=== PATIENT | male | born 1960 | race Caucasian/White ===

== ENCOUNTER 2020-01-08 09:56 | Emergency (ER) | payer OTHER, SELFPAY ==
[2020-01-08 09:57] VITALS: BP 177/116; PULSE 89; RESP 20; TEMP 36.3; O2SAT 97; BMI 35.2
--- NOTE | 2020-01-08 10:07 | CT_ITS ---
STUDY: CT ABDOMEN AND PELVIS WITH CONTRAST REASON FOR EXAM: Male, 59 years old. RT FLANK PAIN, ABD PAIN X 1 WK, DIFFICULTY URINATING, HTN RADIATION DOSAGE (If Supplied By Facility): CTDIvol = ( 14.43 ) mGy, DLP = ( 1199.65 ) mGycm TECHNIQUE: Transaxial images were obtained from the dome of the diaphragm to the symphysis pubis without oral contrast. IV 100mL Isovue-300 was administered. Sagittal and coronal images were reconstructed. Individualized dose optimization techniques were used for this CT. COMPARISON: None. FINDINGS: There is right lower lobe linear atelectasis. The visualized portions of the heart are within normal limits. There is decreased attenuation of the liver consistent with steatosis. There are hepatic cysts measuring up to 9.3 cm in the right hepatic lobe. Normal gallbladder and extrahepatic biliary system. Normal spleen. Normal pancreas. Normal bilateral adrenal glands. There is moderate right hydroureteronephrosis and moderate to marked right perinephric stranding secondary to a 3 mm stone in the right distal ureter, near the UVJ. There is a right renal lower pole cyst. Normal left kidney. Normal visualized stomach. Normal small intestine. There is colonic diverticulosis without evidence of acute diverticulitis. The appendix is visualized and appears normal. Normal abdominal aorta. Normal inferior vena cava. Normal retroperitoneum. Normal urinary bladder. The prostate gland is enlarged. Normal abdominal wall. There are diffuse degenerative changes of the visualized lumbar spine. CT/Abdomen/Pelvis W IV Cont ONLY IMPRESSION: Moderate right hydroureteronephrosis and moderate to marked right perinephric stranding secondary to a 3 mm stone in the right distal ureter, near the UVJ. Prostatomegaly. Hepatic steatosis. Electronically Signed: Peggy Renner, at 12:12 EDT Tel , Service support ,
--- NOTE | 2020-01-08 10:09 | ED.DCSUM_ITS ---
History of Present Illness Chief Complaint: Abd Pain Narrative: 59-year-old male presents with right flank pain. States that last weekend he began having pain in his right flank and back. States it was aching. States he was having difficulty urinating at that time. States that he took off work on Wednesday which is now 1 week ago. States he drink a lot of water and rested and got better. States that beginning 2 days ago he began having the pain again and had 2 episodes of vomiting yesterday. Is urinating without difficulty. Denies any fever but does admit to chills. Denies any chest pain or shortness of breath. States that he did have a few alcoholic beverages on Wednesday. Denies any illicit drug use. Past Medical History - Allergies and Home Meds Allergies/Adverse Reactions: Allergies No Known Allergies Allergy (Verified 03/28/16 19:07) Primary Care Physician: Nile Cabral MD [Primary Care Provider] - Prior records reviewed: Yes Past Medical History: - - Hypertension Surgical History: - - Eye surgery as a child Lives: Spouse/ Significant Other Smoking Status: Never smoker Alcohol: Occasional Drugs: None Review of Systems General: Reports: Chills. Denies: Fever, Sweats Eyes: Denies: Visual changes - bilaterally, Diplopia ENT: Denies: Rhinorrhea, Sore throat Cardiovascular: Denies: Chest pain, Palpitations Respiratory: Denies: Dyspnea, Cough, Dyspnea on exertion Gastrointestinal: Reports: Abdominal pain, Nausea, Vomiting. Denies: Diarrhea, Melena, Hematochezia Genitourinary: Denies: Dysuria, Hematuria, Frequency Musculoskeletal: Denies: Back pain, Extremity Pain Skin: Denies: Rash, Wounds Neurological: Denies: Headache, Weakness, Numbness Physical Exam Vital Signs/Narrative: Vital Signs Temp Pulse Resp BP Pulse Ox 01/08/20 09:57 97.4 F L 89 20 H 177/116 H 97 Inital Vital Signs reviewed: Yes General: Well nourished, Well developed, No Acute Distress Head: Normocephalic, Atraumatic Eyes: Perrl, EOMI ENT: Moist mucous membranes, No rhinorrhea Neck: Supple, Nontender Cardiovascular: Regular rate, Regular rhythm, No murmurs Respiratory: No distress, CTA bilaterally, Chest nontender Abdomen: Soft, Nontender, Nondistended, Normal bowel sounds Back: Nontender, Normal Inspection Extremities: Nontender, No edema Skin: Normal color, No rash Neurological: Alert, Oriented x3, Cranial nerves II-XII grossly intact, Normal Strength, Normal Sensation Psychological: Normal affect, Normal Mood Diagnostic/Tx/Re-eval Clinical Impression(s) from Imaging Studies Abdomen/Pelvis CT 01/08/20 10:07 IMPRESSION: Moderate right hydroureteronephrosis and moderate to marked right perinephric stranding secondary to a 3 mm stone in the right distal ureter, near the UVJ. Prostatomegaly. Hepatic steatosis. Electronically Signed: Peggy Renner, at 12:12 EDT Tel , Service support , Laboratory Data 01/08/20 01/08/20 01/08/20 10:13 10:13 11:15 WBC 15.0 H RBC 5.07 Hgb 15.2 Hct 45.8 MCV 90.3 MCH 30.0 MCHC 33.2 RDW Std Deviation 38.6 RDW Coeff of Ginny 11.9 Plt Count 362 MPV 9.0 Immature Gran % (Auto) 0.300 Neut % (Auto) 82.4 H Lymph % (Auto) 7.5 L Davidson % (Auto) 9.3 Eos % (Auto) 0.1 Baso % (Auto) 0.4 Absolute Neuts (auto) 12.4 H Absolute Lymphs (auto) 1.13 Nucleated RBC % 0 Sodium 135 L Potassium 3.5 Chloride 105 Carbon Dioxide 24.0 Anion Gap 6 BUN 16 Creatinine 1.32 H Estim Creat Clear Calc 62.22 Est GFR (MDRD) Af Amer 71 Est GFR (MDRD) Non-Af 59 L BUN/Creatinine Ratio 12.1 Glucose 136 H Calcium 8.6 Total Bilirubin 2.90 H AST 38 H ALT 52 Alkaline Phosphatase 46 Total Protein 7.7 Albumin 3.7 Globulin 4.0 Albumin/Globulin Ratio 0.9 Lipase 42 L Urine Color Yellow Urine Clarity Clear Urine pH 6.0 Ur Specific [place] 1.010 Urine Protein 15 H Urine Glucose (UA) Normal Urine Ketones Negative Urine Occult Blood 50 H Urine Nitrite Negative Urine Bilirubin Negative Urine Urobilinogen Normal Ur Leukocyte Esterase Negative Urine RBC 0-5 SEEN Urine WBC 0 SEEN Ur Squamous Epith Cells 0-5 SEEN Urine Bacteria 0 SEEN Urine Mucus 0 SEEN - Medical Decision Making Appears well nontoxic. Urine shows evidence of microscopic hematuria without infection. Leukocytosis of 15,000. Slightly elevated creatinine of 1.3 with no baseline for comparison. Patient was given fluid bolus, pain control, Zofran. This did control the patient's symptoms. CT shows evidence of 3 mm UVJ stone with hydronephrosis and right-sided nephric stranding. Patient also has incidental finding of large hemangioma of the liver versus cyst. Nonspecific elevation in bilirubin possibly secondary to these cystic structures. Gallbladder well observed without evidence of distention or stone. Spoke with urologist on-call Dr. Pedraza who is agreeable with outpatient management. Patie nt will be given Percocet, Zofran, Keflex. Was given a dose of Rocephin before discharge. Asked to return for new or worsening symptoms. Patient agreeable and discharged home in stable condition. ED Disposition - Plan for ED Patient: Disposition: Home or Assisted Living Diagnosis: Ureterolithiasis, Leukocytosis, Liver lesion, Hyperbilirubinemia Instructions: ED Renal Stone w Colic, Total Bilirubin Blood Prescriptions: Tamsulosin HCl [Flomax] 0.4 mg PO DAILY #7 cap Prescription Printed Cephalexin [Keflex] 500 mg PO Q6 #28 cap Prescription Printed Oxycodone HCl/Acetaminophen [Percocet 5/325] 1 tab PO Q6H PRN PRN 3 Days #12 tab PRN Reason: Pain Prescription Printed Ondansetron [Zofran Odt] 4 mg PO Q8H PRN PRN #10 tab PRN Reason: Nausea Prescription Printed Referrals: Nile Cabral MD [Primary Care Provider] - Roberto Pedraza MD [STAFF PHYSICIAN] - As soon as possible Additional Instructions: Please make appointment with urologist within the next 3 to 5 days. You are als o found to have lesions on your liver which are likely benign either cysts or hemangiomas. Bilirubin was elevated however gallbladder appeared normal. Please follow-up with your primary care physician about this issue.
[2020-01-08 10:12] VITALS: BP 177/116; PULSE 89; RESP 20; TEMP 36.3; O2SAT 97
[2020-01-08] MEDS: 0.9% Normal Saline 1,000 ML 1000 ML IV (10:16)
[2020-01-08] MEDS: Ondansetron 4 MG/2 ML Vial IV (10:17)
[2020-01-08] MEDS: Ketorolac 30 MG/ML Syringe IV (10:17)
[2020-01-08 10:31] LABS: Absolute Lymphocyte Count 1.13 X10^3/uL (0.83-4.51); Absolute Neutrophil Count 12.4 X10^3/uL (2.0-7.7); Basophil# 0.06 X10^3/uL; Basophil% 0.4 % (0-1); Eosinophil# 0.01 X10^3/uL; Eosinophils% 0.1 % (0-5); Hematocrit 45.8 % (40-54); Hemoglobin 15.2 g/dL (13.0-16.5); Lymphocyte # 1.13 X10^3/ul (4.0); Lymphocyte % 7.5 % (19-41); Mean Corp Hgb Conc 33.2 g/dL (32-36); Mean Corpuscular Volume 90.3 fL (80-94); Monocyte# 1.39 X10^3/uL; Monocyte% 9.3 % (0-10); NRBC Flagged by Analyzer 0 % (0-5); Neutrophil # 12.37 X10^3/uL (2.7-7.7); Neutrophil % 82.4 % (47-70); Platelet Count 362 K/mm3 (150-450); RBC Distribution Width CV 11.9 % (11.6-14.6); RBC Distribution Width SD 38.6 fl (35.1-43.9); Red Blood Count 5.07 M/mm3 (4.6-6.2)
[2020-01-08 10:41] LABS: ALB/GLOB Ratio 0.9 RATIO (0.9-2.4); AST(SGOT) 38 U/L (15-37); Alanine Aminotransfer ALT/SGPT 52 U/L (16-61); Albumin, Serum 3.7 g/dL (3.2-5.0); Alkaline Phosphatase 46 U/L (45-117); Anion Gap 6 (5-15); BUN 16 mg/dL (7-18); BUN/Creat Ratio 12.1 RATIO (10-20); Calcium,Total 8.6 mg/dL (8.5-10.1); Chloride 105 mmol/L (98-107); Creatinine, Serum 1.32 mg/dL (0.70-1.30); EST Glomerular Filtration Rate 59 mL/min (>60); Est Glom Filt Rate - Afr Amer 71 mL/min (>60); Estimated Creatinine Clearance 62.22 ml/min; Glucose 136 mg/dL (74-106); Lipase 42 U/L (73-393); Potassium 3.5 mmol/L (3.5-5.1); Protein, Total 7.7 g/dL (6.4-8.2); Sodium Level 135 mmol/L (136-145)
[2020-01-08 11:22] LABS: Bacteria 0 SEEN /hpf (None Seen); Mucous, Urine 0 SEEN /hpf (<or=2+); White Blood Cells 0 SEEN /hpf (0-5)
[2020-01-08 11:24] LABS: Color, Urine Yellow (Yellow); Glucose, Dipstick Normal (Normal); Ketone-Dipstick Negative (Negative); Leukocyte Esterase-Dipstick Negative /ul (Negative); Nitrite-Dipstick Negative (Negative); Occult Blood-Urine 50 /ul (Negative); Protein-Dipstick 15 mg/dl (Negative); Urine Bilirubin Dipstick Negative (Negative); Urine Clarity Clear (Clear); Urine Urobilinogen Normal (Normal)
[2020-01-08 11:30] LABS: Red Blood Cells-Urine 0-5 SEEN /hpf (0-5); Squamous Epithelial Cells - UA 0-5 SEEN /hpf (0-5)
[2020-01-08] MEDS: Ceftriaxone 1 GM/50 ML BAG IV (13:43)
[2020-01-08 15:12] VITALS: RESP 18
== END 2020-01-08 15:20 | disposition home or self-care (01) ==
PROVIDERS: Emergency Provider Emergency Medicine; PCP Family Medicine
DX: N13.2 Hydronephrosis with renal and ureteral calculous obstruction (principal); D72.829 Elevated white blood cell count, unspecified; K76.9 Liver disease, unspecified; E80.6 Other disorders of bilirubin metabolism; I10 Essential (primary) hypertension; Z79.82 Long term (current) use of aspirin
CPT/HCPCS: 74177; 80053; 81001; 83690; 85025; 96361; 96365; 96366; 96375; 99283; J7030; Q9967; A4216; J2405

== ENCOUNTER → 2021-04-09 07:07 | Outpatient (CLI) | payer SELFPAY ==
[2021-04-09 10:12] LABS: Absolute Lymphocyte Count 1.99 X10^3/uL (0.83-4.51); Absolute Neutrophil Count 3.2 X10^3/uL (2.0-7.7); Basophil# 0.14 X10^3/uL; Basophil% 2.3 % (0-1); Eosinophil# 0.27 X10^3/uL; Eosinophils% 4.4 % (0-5); Hematocrit 45.3 % (40-54); Lymphocyte # 1.99 X10^3/ul (0.83-4.51); Lymphocyte % 32.2 % (19-41); Mean Corp Hgb Conc 33.1 g/dL (32-36); Mean Corpuscular Hgb 29.9 pg (27.0-32.0); Mean Corpuscular Volume 90.4 fL (80-94); Mean Platelet Vol. 9.7 fl (6.2-12.0); Monocyte# 0.59 X10^3/uL; Monocyte% 9.5 % (0-10); NRBC Flagged by Analyzer 0 % (0-5); Neutrophil # 3.18 X10^3/uL (2.7-7.7); Neutrophil % 51.4 % (47-70); Platelet Count 362 K/mm3 (150-450); RBC Distribution Width SD 39.7 fl (35.1-43.9); Red Blood Count 5.01 M/mm3 (4.6-6.2); White Blood Count 6.2 K/mm3 (4.4-11.0)
[2021-04-09 10:32] LABS: ALB/GLOB Ratio 0.9 RATIO (0.9-2.4); AST(SGOT) 15 U/L (15-37); Alanine Aminotransfer ALT/SGPT 30 U/L (16-61); Albumin, Serum 3.6 g/dL (3.2-5.0); Alkaline Phosphatase 42 U/L (45-117); Anion Gap 6 (5-15); BUN 16 mg/dL (7-18); BUN/Creat Ratio 18.8 RATIO (10-20); Calcium,Total 8.7 mg/dL (8.5-10.1); Chloride 107 mmol/L (98-107); Cholesterol 173 mg/dL (200); Creatinine, Serum 0.85 mg/dL (0.70-1.30); EST Glomerular Filtration Rate 97 mL/min (>60); Est Glom Filt Rate - Afr Amer 118 mL/min (>60); Globulin 3.8 g/dL (2.2-4.2); Glucose 113 mg/dL (74-106); High Density Lipoprotein 40 mg/dL; PSA,Total - Annual Screen 0.83 ng/mL (0.00-4.00); Potassium 3.5 mmol/L (3.5-5.1); Protein, Total 7.4 g/dL (6.4-8.2); Sodium Level 139 mmol/L (136-145); Triglycerides 114 mg/dL; Very Low Density Lipoprotein 23 mg/dL (5-40)
== END ==
PROVIDERS: PCP Family Medicine; Referring Provider Family Medicine; Visit Provider Family Medicine
DX: Z00.00 Encounter for general adult medical examination without abnormal findings (principal); I10 Essential (primary) hypertension; Z12.5 Encounter for screening for malignant neoplasm of prostate
CPT/HCPCS: 36415; 80053; 80061; 84153; 85025; G0103

== ENCOUNTER 2023-01-23 20:02 | Emergency (ER) | payer SELFPAY ==
[2023-01-23 20:04] VITALS: BP 99/79; PULSE 90; RESP 18; TEMP 36.8; O2SAT 97; BMI 32.8
--- NOTE | 2023-01-23 20:55 | CT_ITS ---
INDICATION: Trauma EXAMINATION/TECHNIQUE: X-RAY - CT Maxillofacial W/O Contrast Injection COMPARISON: Head CT 03/28/2016. Findings: Noncontrast serial CT axial images of the facial bones with suboptimal MIP coronal and sagittal reformatted series. OSSEOUS STRUCTURES: Stable angulated left nasal bone deformity from 2016. No acute facial fracture. No TMJ subluxation. Pansinus mucosal thickening with left maxillary sinus opacification and associated surrounding chronic mucoperiosteal thickening. Bilateral multilevel mid cervical spine moderate to severe neuroforaminal narrowing. ORBITS: No obvious acute globe abnormality. No infiltration the orbital fat. REMAINING SOFT TISSUES: Right periorbital hematoma. CT/Sinus/Facial Bone IMPRESSION: Right periorbital hematoma without facial fracture appreciated. Pansinus disease. Neuroforaminal narrowing. Electronically Signed: Woody Elliott MD at 22:17 EDT ,
[2023-01-23 21:08] LABS: Absolute Neutrophil Count 3.4 X10^3/uL (2.0-7.7); Basophil# 0.16 X10^3/uL; Eosinophil# 0.28 X10^3/uL; Eosinophils% 3.5 % (0-5); Hematocrit 42.8 % (40-54); Hemoglobin 14.8 g/dL (13.0-16.5); Lymphocyte % 40.9 % (19-41); Mean Corp Hgb Conc 34.6 g/dL (32-36); Mean Corpuscular Hgb 31.6 pg (27.0-32.0); Mean Corpuscular Volume 91.5 fL (80-94); Mean Platelet Vol. 9.2 fl (6.2-12.0); Monocyte# 0.91 X10^3/uL; Monocyte% 11.3 % (0-10); NRBC Flagged by Analyzer 0 % (0-5); Neutrophil # 3.38 X10^3/uL (2.7-7.7); Neutrophil % 41.9 % (47-70); Platelet Count 372 K/mm3 (150-450); RBC Distribution Width CV 12.2 % (11.6-14.6); Red Blood Count 4.68 M/mm3 (4.6-6.2); White Blood Count 8.1 K/mm3 (4.4-11.0)
[2023-01-23] MEDS: Diphth,Pertuss(Acell),Tet Vac 0.5 ML Vial IM (21:18)
[2023-01-23 21:22] LABS: Anion Gap 16 (5-15); BUN 11 mg/dL (7-18); BUN/Creat Ratio 11.9 RATIO (10-20); Calcium,Total 8.3 mg/dL (8.5-10.1); Chloride 99 mmol/L (98-107); Creatinine, Serum 0.93 mg/dL (0.70-1.30); EST Glomerular Filtration Rate 88 mL/min (>60); Est Glom Filt Rate - Afr Amer 106 mL/min (>60); Estimated Creatinine Clearance 85.04 ml/min; Glucose 82 mg/dL (74-106); Potassium 3.3 mmol/L (3.5-5.1); Sodium Level 133 mmol/L (136-145)
--- NOTE | 2023-01-23 21:52 | ED.VIS.FALL ---
HPI HPI - Fall History of Present Illness Chief Complaint: Fall Informant: patient Occured/Mechanism Occurred: Today Mechanism/Context: Yes trip Pain/Injury Pain Location: face and lower extremity (Right knee) Quality of Pain: Dull Worsened by: Nothing Relieved by: Nothing Associated Symptoms Associated Symptoms: Positive for Loss of consciousness; Negative for Parasthesias, Weakness, Loss of function, Inability to ambulate or Amnesia Length of loss of consciousness: Few seconds Narrative Narrative: Patient presents after a fall that occurred tonight. Patient states he had been drinking several beers tonight. Patient states he tripped and fell forward. Patient states he landed on his face. Patient admits to a brief loss of consciousness. Patient denies any paresthesias or weakness. Patient states his tetanus was approximately 5 years ago. Patient describes his pain as dull. Patient states his pain is over the right periorbital area and right knee area. Patient admits to a mild headache. Patient denies any visual changes. Tetanus Immunization: <5 years [facility] Medical History HTN (hypertension) Home Medications albuterol sulfate 90 mcg/actuation aerosol inhaler 1 puff IH Q4H PRN PRN Sob &/Or Wheezing 01/08/20 [History Last Taken Unknown] amlodipine 5 mg tablet 5 mg PO DAILY 01/08/20 [History Last Taken 01/08/20] aspirin 81 mg tablet,delayed release 81 mg PO DAILY 01/08/20 [History Last Taken 01/08/20] atenolol 50 mg tablet 50 mg PO DAILY 01/08/20 [History Last Taken 01/08/20] cephalexin 500 mg capsule 500 mg PO Q6 #28 caps 01/08/20 [Rx Last Taken Unknown] citalopram 40 mg tablet 40 mg PO DAILY 01/08/20 [History Last Taken 01/08/20] hydrochlorothiazide 25 mg tablet 25 mg PO DAILY 01/08/20 [History Last Taken 01/08/20] losartan 100 mg tablet 100 mg PO DAILY 01/08/20 [History Last Taken 01/08/20] ondansetron 4 mg disintegrating tablet 4 mg PO Q8H PRN PRN Nausea #10 tabs 01/08/20 [Rx Last Taken Unknown] tamsulosin 0.4 mg capsule 0.4 mg PO DAILY #7 caps 01/08/20 [Rx Last Taken Unknown] Allergy/AdvReac Type Severity Reaction Status Date / Time No Known Allergies Allergy Verified 01/23/23 20:06 no surgical history Social History Smoking Status: Never smoker ROS ROS ED Constitutional Constitutional ED: Denies chills or fever(s) Eyes Eyes: Denies blurry vision or change in vision ENT ENT ED: Denies rhinorrhea or sore throat Cardiovascular Cardiovascular: Denies chest pain or palpitations Respiratory/Chest Respiratory/Chest: Denies cough or dyspnea Gastrointestinal Gastrointestinal: Denies nausea or vomiting Genitourinary Genitourinary ED: Denies dysuria or hematuria Musculoskeletal Musculoskeletal: Denies back pain or neck pain Integumentary Denies abscess or rash Neurologic Neurologic: Reports headache(s); Denies weakness Allergic/Immunologic Allergic/Immunologic ED: Denies mouth swelling or urticaria EXAM Physical Exam Const Vital Signs: 01/23/23 20:04 01/23/23 20:07 01/23/23 22:05 Temperature 98.2 F Temperature Source Oral Pulse Rate 90 80 Respiratory Rate 18 22 H Respiratory Effort Normal Non-Labored Blood Pressure 99/79 104/83 H Blood Pressure Mean 85 90 Pulse Ox 97 93 Oxygen Delivery Method Room Air Room Air Positive well nourished and well developed General Appearance ED: well developed and NAD HEENT HEENT Narrative: There is edema and ecchymosis of the right periorbital area. There is edema and ecchymosis of the right upper eyelid. There is no bony crepitance or step-off. Pupils are equal, round, and reactive to light bilaterally. Extraocular muscles are intact. Patient has no diplopia with upward gaze. Oral mucosa is pink and moist. Oropharynx is clear. Airway is patent. Eyes PERRL and EOMs intact bilaterally Neck full ROM and supple Resp normal respiratory effort and clear to auscultation bilaterally Cardio regular rate and regular rhythm GI non-tender Palpation: soft Extremity Extremity Narrative: There is tenderness over the anterior aspect of the right knee. There is a superficial abrasion noted. There is no bony crepitance or step-off noted. There is good range of motion of the right knee. There is no laxity appreciated. Strength is 5/5 bilaterally in the upper and lower extremities. There are no sensory deficits noted. Radial and pedal pulses are equal bilaterally. Neuro oriented x3, CN's II-XII intact bilaterally, moves all extremities, no focal motor deficits and no sensory deficits noted Sensorium / Orientation: alert Motor Exam: strength 5/5 throughout Psych mental status grossly normal MDM [facility] MDM Narrative Medical decision making narrative: Differential diagnosis includes orbital fracture, hematoma, contusion, closed head injury, and alcohol intoxication. CT scan of the facial bones will be obtained pain to for facial fracture. CBC will be obtained to assess for leukocytosis and anemia. Basic metabolic profile will be obtained to assess for electrolyte abnormality and renal function. Lab Data Labs: Laboratory Results - last 24 hr 01/23/23 20:30 WBC 8.1 RBC 4.68 Hgb 14.8 Hct 42.8 MCV 91.5 MCH 31.6 MCHC 34.6 RDW Std Deviation 41.0 RDW Coeff of Ginny 12.2 Plt Count 372 MPV 9.2 Immature Gran % (Auto) 0.400 Neut % (Auto) 41.9 L Lymph % (Auto) 40.9 White % (Auto) 11.3 H Eos % (Auto) 3.5 Baso % (Auto) 2.0 H Absolute Neuts (auto) 3.4 Absolute Lymphs (auto) 3.30 Nucleated RBC % 0 Sodium 133 L Potassium 3.3 L Chloride 99 Carbon Dioxide 18.0 L Anion Gap 16 H BUN 11 Creatinine 0.93 Estim Creat Clear Calc 85.04 Est GFR (MDRD) Af Amer 106 Est GFR (MDRD) Non-Af 88 BUN/Creatinine Ratio 11.9 Glucose 82 Calcium 8.3 L Radiography Diagnostic Testing: Clinical Impression(s) from Imaging Studies Facial/Sinus 01/23/23 20:55 IMPRESSION: Right periorbital hematoma without facial fracture appreciated. Pansinus disease. Neuroforaminal narrowing. Electronically Signed: Woody Elliott MD at 22:17 EDT , CT scan of the facial bones was obtained. There is a right periorbital hematoma. There is no fracture noted. This was interpreted by the radiologist and was also independently reviewed by myself. Treatment and Re-Evaluation Narrative: Patient was given tetanus booster. Patient was instructed to keep the area clean. Patient was instructed to take Tylenol or ibuprofen as needed for pain. Patient was instructed to follow-up with his primary care physician in 5 to 7 days. Patient understood and was agreeable with the plan. All questions were answered. Discharge Plan Triage Chief Complaint: Fall ED Provider: Torsten Jordan Dx/Rx/DC Orders Clinical Impression: Closed head injury, Periorbital hematoma of right eye Instructions: ED Head Injury (Adult), ED Hematoma Prescriptions: No Action citalopram 40 MG tablet 40 mg PO DAILY amlodipine 5 MG tablet 5 mg PO DAILY aspirin 81 MG tablet,delayed release (DR/EC) 81 mg PO DAILY hydrochlorothiazide 25 MG tablet 25 mg PO DAILY albuterol sulfate 90 mcg/actuation HFA aerosol inhaler 1 puff IH Q4H PRN PRN (Reason: Sob &/Or Wheezing) Patient Comments: INHALE 2 PUFFS BY MOUTH EVERY 4 HOURS NEEDED losartan 100 MG tablet 100 mg PO DAILY atenolol 50 MG tablet 50 mg PO DAILY ondansetron 4 MG tablet 4 mg PO Q8H PRN PRN (Reason: Nausea) Qty: 10 0RF tamsulosin 0.4 MG capsule 0.4 mg PO DAILY Qty: 7 0RF cephalexin 500 MG capsule 500 mg PO Q6 Qty: 28 0RF Primary Care Provider: Nile Cabral Referrals: Nile Cabral MD [Primary Care Provider] - 5-7 Days Disposition Disposition: Home, Self Care
[2023-01-23 22:05] VITALS: BP 104/83; PULSE 80; RESP 22; O2SAT 93
[2023-01-24 01:18] VITALS: BP 108/71; PULSE 71; RESP 18; O2SAT 99
== END 2023-01-24 01:20 | disposition home or self-care (01) ==
PROVIDERS: Emergency Provider Emergency Medicine; PCP Family Medicine; Visit Provider Emergency Medicine
DX: S09.90XA Unspecified injury of head, initial encounter (principal); S05.11XA Contusion of eyeball and orbital tissues, right eye, initial encounter; W19.XXXA Unspecified fall, initial encounter
CPT/HCPCS: 70486; 80048; 85025; 90715; 99285